=== PATIENT | female | born 1965 | race Caucasian/White ===

== ENCOUNTER 2021-09-12 05:15 | Day surgery (SDC) | payer BC, SELFPAY ==
[~2021-09-12] VITALS: Ht 172.7 cm; Wt 63.5 kg
[2021-09-12] MEDS ORDERED: MIDAZOLAM HCL 5 MG/5 ML VIAL IVP ONE (05:16)
[2021-09-12] MEDS ORDERED: fentaNYL CITRATE 250 MCG/5 ML AMP IV ONE (05:16)
[2021-09-12] MEDS ORDERED: ONDANSETRON HCL 4 MG/2 ML VIAL IVP PRN (07:45)
[2021-09-12] MEDS ORDERED: LR 1,000 ML IV SCH (07:45)
[2021-09-12] MEDS ORDERED: METOCLOPRAMIDE HCL 10 MG/2 ML VIAL IVP PRN (07:45)
[2021-09-12] MEDS ORDERED: PROPOFOL 200MG/ 20ML VIAL (DIPRIVAN) IV ONE (07:45)
[2021-09-12 11:05] VITALS: BP_SYST 98
== END 2021-09-12 09:30 | disposition home or self-care (01) ==
LOC: SMU 05:15 → SDS 05:15
PROVIDERS: ATTEND Internal Medicine
DX: K29.50 Unspecified chronic gastritis without bleeding (principal); K59.00 Constipation, unspecified; R11.2 Nausea with vomiting, unspecified
CPT/HCPCS: 36415; 43239; 71046; 87081; 87426; 88305; 88312; 88313; 93005; J2250; J2704; J3010; U0003